=== PATIENT | male | born 1950 | race Caucasian/White ===

== ENCOUNTER 2024-06-15 07:44 | Emergency (ER) | payer MEDICARE ==
[~2024-06-15] VITALS: Ht 188 cm; Wt 95.3 kg
[2024-06-15 07:44] VITALS: BP 145/102; PULSE 89; RESP 18; TEMP 97.9; O2SAT 98
[2024-06-15 08:14] VITALS: BP 148/99; PULSE 75; RESP 18; TEMP 97.9; O2SAT 98
[2024-06-15] MEDS ORDERED: NS 1000ML 1,000 ML ONE (08:18)
[2024-06-15] MEDS ORDERED: BOOSTRIX IM ONE (08:19)
[2024-06-15] MEDS: BOOSTRIX IM ONE (08:21)
[2024-06-15 08:25] LABS: BASOPHIL # 0.1 10^3/uL (0.0-0.1); BASOPHIL % 0.5 % (0.0-0.2); EOSINOPHIL % 0.2 % (0.0-5.0); HEMATOCRIT(ML) 41.8 % (37.0-53.0); HEMOGLOBIN 13.5 g/dL (13.9-16.3); IG % 0.5 % (0.00-0.50); LYMPHOCYTES # 0.56 10^3/uL1 (1.0-4.8); MEAN CORP HGB 28.8 pg (26-34); MEAN CORP HGB CONCENTRATION 32.3 g/dL (33-36.5); MEAN CORP VOLUME 89.1 fL (78-100); MONOCYTES # 1.1 10^3/uL (0.3-0.8); MONOCYTES % 9.5 % (5.0-12.0); NEUTROPHIL # 9.3 10^3/uL (1.8-7.7); NEUTROPHILS % 84.3 % (41.0-85.0); RED BLOOD CELL 4.69 10^6/uL (4.50-5.90); RED CELL DISTRIBUTION WIDTH 16.8 % (11.5-14.5); WHITE BLOOD CELL 11.1 10^3/uL (4.5-11.0)
[2024-06-15 08:27] LABS: BILIRUBIN,URINE NEGATIVE (NEGATIVE); LEUKOCYTE ESTERASE ,URINE NEGATIVE (NEGATIVE); NITRATE,URINE NEGATIVE (NEGATIVE); PH,URINE 5.5 (4.5-8.0)
[2024-06-15 08:36] LABS: APPEARANCE,URINE CLEAR; UA COLOR YELLOW; UAMPH METHAMP(SCRN) NEGATIVE (co1000ng/mL); UR MDMA (ECSTASY) SCRN NEGATIVE (c/o300ng/mL); UR METHADONE SCRN NEGATIVE (c/o300ng/mL); UR OPIATE SCRN NEGATIVE (c/o300ng/mL); UR PHENCYCLIDINE (PCP) SCRN NEGATIVE (c/o 25ng/mL); UR TETRAHYDROCANNABINOL SCRN NEGATIVE (c/o 50ng/mL)
[2024-06-15 08:40] LABS: INR 0.9; PROTHROMBIN PROTIME 9.9 SEC (9.7-11.6)
[2024-06-15] MEDS: NS 1000ML 1,000 ML IV SCH (08:43)
[2024-06-15] MEDS: FOLIC ACID IV ONE (08:43)
[2024-06-15] MEDS: THIAMINE HCL IV STA (08:43)
[2024-06-15] MEDS: FOLIC ACID PO STA (08:43)
[2024-06-15 08:44] VITALS: BP 112/63; PULSE 70; RESP 18; TEMP 97.9; O2SAT 98
[2024-06-15 09:13] LABS: ALBUMIN(ML) 3.3 g/dL (3.4-5.0); ALBUMIN/GLOBULIN RATIO 0.97; ANION GAP 17.5; BUN/CREATININE RATIO 11.32 (10.0-20.0); CALCIUM 8.3 mg/dL (8.4-10.5); CARBON DIOXIDE 22.8 mmol/L (20.0-32); CREATININE SERUM 1.06 mg/dL (0.59-1.40); EST GFR, NON-AA 68.5 (>/=60); POTASSIUM 4.3 mmol/L (3.6-5.2)
[2024-06-15 09:15] LABS: CREATINE KINASE MB 12.3 ng/mL (0.5-3.6)
[2024-06-15] MEDS ORDERED: FOLIC ACID PO ONE (10:21)
[2024-06-15] MEDS ORDERED: THIAMINE HCL ONE (10:21)
== END 2024-06-15 09:20 | disposition short-term general hospital (02) ==
LOC: ER 07:44 → EDBD 07:44 → ER 09:20
DX: S42.412A Displaced simple supracondylar fracture without intercondylar fracture of left humerus, initial encounter for closed fracture (principal); S22.41XA Multiple fractures of ribs, right side, initial encounter for closed fracture; I10 Essential (primary) hypertension; I25.10 Atherosclerotic heart disease of native coronary artery without angina pectoris; I48.91 Unspecified atrial fibrillation; J44.9 Chronic obstructive pulmonary disease, unspecified; W18.39XA Other fall on same level, initial encounter; Y93.89 Activity, other specified; Y92.89 Other specified places as the place of occurrence of the external cause; Y99.8 Other external cause status
CPT/HCPCS: 99291; 96374; 70450; 71045; 96361; 90471; 90715; 73070; 73090; 73030; 80053; 85025; 36415; 84484; 83605; 80307; 82140; 82553; 82077; 82550; 83690; 85610; 83735; 93005; 81001; J7030; J3411